=== PATIENT | male | born 1960 ===

== ENCOUNTER 2017-04-26 11:23 | Day surgery (SDC) | payer MEDICAID ==
[2017-04-26 12:24] LABS: Basophils % (Auto) 0.6 % (0.0-1.8); Eosinophils # (Auto) 0.1 K/mm3 (0.0-0.4); Eosinophils % (Auto) 1.7 % (0.0-4.3); Hemoglobin 13.4 gm/dl (11.8-15.2); Lymphocytes # (Auto) 1.7 K/mm3 (1.2-5.4); Lymphocytes % (Auto) 32.9 % (13.4-35.0); Mean Corpuscular HGB Conc 34 % (32-34); Mean Corpuscular Hemoglobin 31 pg (28-32); Mean Corpuscular Volume 94 fl (84-94); Monocytes # (Auto) 0.6 K/mm3 (0.0-0.8); Monocytes % (Auto) 12.7 % (0.0-7.3); Platelet Count 219 K/mm3 (140-440); Red Blood Count 4.27 M/mm3 (3.65-5.03); Red Cell Distribution Width 13.2 % (13.2-15.2)
[2017-04-26 12:50] LABS: BUN/Creatinine Ratio 20; Blood Urea Nitrogen 12 mg/dL (9-20); Calcium 9.2 mg/dL (8.4-10.2); Hemolysis Index 15
[2017-04-26] MEDS ORDERED: DIPRIVAN 10 MG/ML IV ONE (13:19)
[2017-04-26] MEDS ORDERED: SUBLIMAZE ONE (13:19)
[2017-04-26] MEDS ORDERED: DILAUDID IV PRN ×2 (13:23→15:49)
[2017-04-26] MEDS ORDERED: ZOFRAN IV PRN ×2 (13:23→15:49)
[2017-04-26] MEDS ORDERED: SUBLIMAZE IV PRN (13:23)
[2017-04-26] MEDS ORDERED: XYLOCAINE MPF 2% ONE (13:24)
--- NOTE | 2017-04-26 13:24 | Anesthesia Day of Surgery ---
Anesthesia Day of Surgery - Day of Surgery Patient Examined: Yes Patient H&P Reviewed: Yes Patient is NPO: Yes
--- NOTE | 2017-04-26 13:25 | Anesthesia Consultation ---
Anesthesia Consult and Med Hx Date of service: 04/26/17 - Airway Anesthetic Teeth Evaluation: Poor, Chipped ROM Head & Neck: Adequate Mental/Hyoid Distance: Adequate Mallampati Class: Class II Intubation Access Assessment: Probably Good - Pulmonary Exam CTA: Yes - Cardiac Exam Cardiac Exam: RRR - Pre-Operative Health Status ASA Pre-Surgery Classification: ASA3, ASA4 Proposed Anesthetic Plan: General - Pulmonary Hx Smoking: Yes Hx Sleep Apnea: Yes (DARLENE PRE SCREEN HIGH RISK) - Cardiovascular System Hx Hypertension: Yes - Central Nervous System Hx Neuromuscular Disorder: Yes (paraplegic) Hx Seizures: Yes (ON MEDS) 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
[2017-04-26] MEDS ORDERED: NACL 0.9% 1000 ML 1,000 ML IV SCH (14:00)
[2017-04-26] MEDS ORDERED: ANCEF/STERILE WATER 2 GM/20 ML IV NR (14:00)
[2017-04-26] MEDS ORDERED: PEPCID IV NR (14:00)
[2017-04-26] MEDS ORDERED: NEO SYNEPHRINE/NS Syringe(OR USE) IV ONE (14:10)
[2017-04-26] MEDS ORDERED: ZEMURON IV ONE (14:16)
[2017-04-26] MEDS ORDERED: MARCAINE 0.25% INFILTRATI ONE ×2 (14:25→14:55)
[2017-04-26] MEDS ORDERED: TRIPLE ANTIBIOTIC TP ONE ×3 (14:25→15:20)
[2017-04-26] MEDS ORDERED: ROBINUL ONE ×2 (14:38)
[2017-04-26] MEDS ORDERED: ZOFRAN ONE (14:38)
[2017-04-26] MEDS ORDERED: NEOSTIGMINE ONE (14:38)
[2017-04-26] MEDS ORDERED: NACL 0.9% IR ONE (14:55)
[2017-04-26] MEDS ORDERED: BREVIBLOC IV ONE (15:30)
--- NOTE | 2017-04-26 15:48 | Post Anesthesia Evaluation ---
- Post Anesthesia Evaluation Patient Participated: Yes Airway Patent: Yes Stable Respiratory Function: Yes Nausea/Vomiting: No Temp > 96.8F: Yes Pain Manageable: Yes Adequeate Hydration: Yes Anesthesia Complications: No Block Receding Appropriately: Not Applicable Patient on Ventilator: No
--- NOTE | 2017-04-26 15:50 | Short Stay Summary ---
Short Stay Documentation Date of service: 04/26/17 - History H&P: obtained from office - Allergies and Medications Current Medications: Allergies No Known Allergies Allergy (Verified 04/20/17 11:33) Home Medications Medication Instructions Recorded Confirmed Last Taken Type Apixaban [Eliquis] 5 mg PO BID 04/20/17 04/26/17 04/20/17 09:00 History Ascorbic Acid [Vitamin C] 1,000 mg PO DAILY 04/20/17 04/26/17 04/25/17 09:00 History Bumetanide [Bumetanide 2 mg tab] 2 mg PO DAILY 04/20/17 04/26/17 04/25/17 09:00 History Dextran 70/Hypromellose 1 each OP BID 04/20/17 04/26/17 04/25/17 21:00 History [Artificial Tears] Divalproex Dr [Depakote Dr] 500 mg PO BID 04/20/17 04/26/17 04/25/17 21:00 History Furosemide [Lasix TAB] 40 mg PO BID 04/20/17 04/26/17 04/25/17 21:00 History Gabapentin [Neurontin] 300 mg PO Q8HR 04/20/17 04/26/17 04/25/17 22:00 History HYDROcodone/ACETAMINOPHEN [[place] 1 each PO TID 04/20/17 04/20/17 Unknown History 10-325 Tablet] Insulin Aspart [NovoLOG Flexpen] 20 unit SUB-Q AC 04/20/17 04/26/17 04/25/17 21: 00 History Insulin Detemir [Levemir] 60 units SUB-Q BID 04/20/17 04/26/17 04/25/17 17:00 History Insulin Lispro [Humalog] 1 unit SQ TID 04/20/17 04/26/17 04/25/17 17:00 History Oxybutynin Chloride [Ditropan Xl] 10 mg PO QDAY 04/20/17 04/26/17 04/25/17 09: 00 History Pantoprazole [Protonix] 40 mg PO QDAY 04/20/17 04/26/17 04/25/17 09:00 History Potassium Chloride [K-Dur] 20 meq PO QDAY 04/20/17 04/26/17 04/25/17 09:00 History Quetiapine Fumarate (Nf) [SEROquel 150 mg PO BID 04/20/17 04/26/17 04/25/17 21: 00 History XR] Sertraline [Zoloft] 150 mg PO QDAY 04/20/17 04/26/17 04/25/17 09:00 History Tamsulosin [Flomax] 0.4 mg PO QDAY 04/20/17 04/26/17 04/25/17 09:00 History Tizanidine HCl [Zanaflex] 8 mg PO TID PRN 04/20/17 04/20/17 Unknown History Active Medications Cefazolin Sodium (Ancef/Sterile Water 2 Gm/20 Ml) 2 gm IV PREOP NR Stop: 04/26/17 23:59 Famotidine (Pepcid) 20 mg IV PREOP NR Stop: 04/26/17 23:59 Last Admin: 04/26/17 13:41 Dose: 20 mg Fentanyl (Sublimaze) 50 mcg IV Q5MIN PRN PRN Reason: Pain , Severe (7-10) Hydromorphone HCl (Dilaudid) 0.25 mg IV Q10MIN PRN PRN Reason: Pain, Moderate (4-6) Sodium Chloride (Nacl 0.9% 1000 Ml) 1,000 mls @ 100 mls/hr IV DIRECT RENEE Last Admin: 04/26/17 13:41 Dose: 100 mls/hr Ondansetron HCl (Zofran) 4 mg IV ONCE PRN PRN Reason: Nausea And Vomiting - Brief post op/procedure progress note Date of procedure: 04/26/17 Pre-op diagnosis: Severe Phimosis / balanitis Post-op diagnosis: same Procedure: circuscision Anesthesia: GETA Findings: sever phim; inflamm Surgeon: RADHA NARVAEZ Estimated blood loss: minimal Pathology: list (FS) Specimen disposition: to lab Condition: stable - Hospital course Hospital course: [facility] - Disposition Condition at discharge: Good Disposition: TO HOME OR SELFCARE Short Stay Discharge Plan Activity: advance as tolerated Diet: advance as tolerated Follow up with: RADHA NARVAEZ MD [Staff Physician] - 7 Days
[2017-04-26 19:24] VITALS: BP 107/76
--- NOTE | 2017-05-05 07:51 | Operative Report ---
PREOPERATIVE DIAGNOSES: Phimosis, balanitis. POSTOPERATIVE DIAGNOSES: Phimosis, balanitis. PROCEDURE: Circumcision. SURGEON: Boogie Torres M.D. ANESTHESIA: General. SPECIMENS: Foreskin. ESTIMATED BLOOD LOSS: Minimal. COMPLICATIONS: None. FINDINGS: A severely phimotic, edematous, penis and scrotum. IMPLANTS: None. EBL: Minimal. COMPLICATIONS: None. CLINICAL INDICATIONS: Counseled RCBA, antibiotics, SCDs, including limitations given his anatomy, he wanted to proceed. DESCRIPTION OF PROCEDURE: The patient was transferred to OR suite in supine position, anesthesia, prepped and draped in standard fashion. Attention was taken to the foreskin that is severely phimotic foreskin. An incision was made at 12 o'clock position with the clamp to open this up. This was retracted. Next, I demarcated circumferential free sleeve with a marking pen. Proximal and distal circumferential incision was made with a #15 blade and then this free sleeve was removed with electrocautery. Next, the area was irrigated. We approximated the skin with interrupted 3-0 chromic, first at the 3, 6, 9, 12 o'clock position and in between we placed 3-0 chromic and 4-0 chromic interrupted sutures. The area was irrigated and Neosporin, Vaseline gauze, Kerlix, then Antonia was placed for dressing. The patient awakened and transferred to the PACU in good and stable condition. JOB# [id number] ATS/NTS
== END 2017-04-26 18:55 | disposition home or self-care (01) ==
LOC: OR 11:23
PROVIDERS: ATTEND Urology
DX: N48.1 Balanitis (principal); N47.1 Phimosis; N31.9 Neuromuscular dysfunction of bladder, unspecified; G47.30 Sleep apnea, unspecified; I10 Essential (primary) hypertension; I69.354 Hemiplegia and hemiparesis following cerebral infarction affecting left non-dominant side; E11.9 Type 2 diabetes mellitus without complications; E66.9 Obesity, unspecified; F31.9 Bipolar disorder, unspecified; F17.200 Nicotine dependence, unspecified, uncomplicated; Z68.41 Body mass index [BMI] 40.0-44.9, adult; Z79.4 Long term (current) use of insulin; Z79.899 Other long term (current) drug therapy; Z79.01 Long term (current) use of anticoagulants
CPT/HCPCS: 36415; 54161; 80048; 82962; 85025; 85610; 85730; 88304; A4217; J2370; J2405; J2704; J2710; J3010; J7030; A6250; J1815